=== PATIENT | female | born 1950 | race Caucasian/White ===

== ENCOUNTER → 2017-01-02 | Outpatient (CLI) | payer MEDICARE, OTHER ==
[~2017-01-02] MED LIST: CANA300T OR; CITA20TA3 PO; DICL1.3D21 TOP; DICL1GEL26 TOP; ERYT2GEL TOP; LEVO125C PO; PANT40TA2 PO; PREG100C PO; REPA1TAB5 OR; ROSU5TAB5 PO; SITA100T7 PO; TIZA4CAP7 PO; TOLT4CAP12 PO; VALA1TAB29 PO; [UNRECOGNIZED DRUG - CODE] OR
[2017-01-02 09:30] LABS: Urine Bilirubin Negative (Negative); Urine Color Yellow (Yellow); Urine Ketone Negative (Negative); Urine Mucus FEW (None Seen); Urine Nitrite Negative (Negative); Urine RBC 13 /hpf (0 - 4); Urine Squamous Epithelial Cell FEW /hpf (<5); Urine Urobilinogen Normal (Negative); Urine pH 5.5 (5.0-8.0)
[2017-01-02 09:31] LABS: Urine Blood 1+ /uL (Negative); Urine Glucose 2+ mg/dL (Normal)
[2017-01-02 09:41] LABS: Cholesterol 136 mg/dL (<200); HDL Cholesterol 46 mg/dL (40-59); LDL Cholesterol 76 mg/dL (<100); Triglycerides 98 mg/dL (<150)
== END | disposition home or self-care (01) ==
LOC: LAB 07:58
PROVIDERS: ATTEND Internal Medicine
DX: E11.9 Type 2 diabetes mellitus without complications (principal); I10 Essential (primary) hypertension
CPT/HCPCS: 36415; 80061; 81001; 82043; 82607; 83036; 84439; 84443; 85379

== ENCOUNTER → 2017-02-13 | Outpatient (CLI) | payer MEDICARE, OTHER ==
[2017-02-13 14:22] LABS: Basophils # (auto) 0 uL; Basophils % (auto) 0.1 % (0.0-2.0); Eosinophils # (auto) 0.2 uL; Eosinophils % (auto) 1.8 % (0.0-7.0); Hematocrit 45.2 % (36.0-46.0); Hemoglobin 14.9 g/dL (12.2-16.2); Lymphocytes # (auto) 1.5 uL; Lymphocytes % (auto) 16.4 % (10.0-50.0); Mean Corpuscular Hemoglobin 31.8 pg (28.0-32.0); Mean Corpuscular Volume 96.1 fL (80.0-100.0); Mean Platelet Volume 7.2 fL (7.4-10.4); Monocytes # (auto) 0.6 uL; Monocytes % (auto) 6.5 % (0.0-12.0); Neutrophils # (auto) 6.6 uL; Neutrophils % (auto) 75.2 % (37.0-80.0); Platelet Count (auto) 291 10^3/uL (140-450); Red Cell Distribution Width 15.1 % (11.6-16.0); White Blood Cell 8.8 10^3/uL (4.4-10.8)
[2017-02-13 14:35] LABS: BUN/Creatinine Ratio 12.7; Calcium 8.8 mg/dL (8.5-10.1); Potassium 4.1 mmol/L (3.5-5.1)
[2017-02-13 14:43] LABS: B-Type Natriuretic Peptide 75.72 pg/mL (0-100)
[2017-02-13 14:50] LABS: Temperature: 22.4 C (20.0-25.0)
== END | disposition home or self-care (01) ==
LOC: LAB 14:05
PROVIDERS: ATTEND Internal Medicine
DX: R05 Cough (principal); R06.9 Unspecified abnormalities of breathing; R06.01 Orthopnea
CPT/HCPCS: 36415; 80048; 83880; 85025

== ENCOUNTER 2017-02-21 17:02 | Emergency (ER) | payer MEDICARE, OTHER ==
[~2017-02-21] VITALS: Ht 172.7 cm; Wt 128.4 kg
[2017-02-21] MEDS ORDERED: cloNIDine HCL 0.1 MG TAB PO ONE (18:00)
[2017-02-21 18:44] LABS: Basophils # (auto) 0.1 uL; Basophils % (auto) 0.4 % (0.0-2.0); Eosinophils # (auto) 0.1 uL; Eosinophils % (auto) 0.6 % (0.0-7.0); Hematocrit 45.1 % (36.0-46.0); Hemoglobin 14.7 g/dL (12.2-16.2); Lymphocytes # (auto) 1.5 uL; Lymphocytes % (auto) 11.4 % (10.0-50.0); Mean Corpuscular Hemoglobin 31.6 pg (28.0-32.0); Mean Corpuscular Hgb Conc. 32.7 g/dL (32.0-36.0); Mean Corpuscular Volume 96.7 fL (80.0-100.0); Mean Platelet Volume 7.6 fL (7.4-10.4); Monocytes % (auto) 7.4 % (0.0-12.0); Neutrophils # (auto) 10.2 uL; Neutrophils % (auto) 80.2 % (37.0-80.0); Platelet Count (auto) 307 10^3/uL (140-450); Red Cell Distribution Width 14.7 % (11.6-16.0); White Blood Cell 12.8 10^3/uL (4.4-10.8)
[2017-02-21 18:54] LABS: Albumin 3.2 g/dL (3.4-5.0); Anion Gap 9 (5-15); Aspartate Aminotransferase 17 U/L (15-37); BUN/Creatinine Ratio 9.4; Blood Urea Nitrogen 6 mg/dL (7-18); Calcium 8.3 mg/dL (8.5-10.1); Carbon Dioxide 27 mmol/L (21-32); Chloride 101 mmol/L (98-107); GFR African American 119 mL/min; GFR Non-African American 99 mL/min; Glucose 104 mg/dL (74-106); Potassium 3.3 mmol/L (3.5-5.1); Sodium 137 mmol/L (136-145)
[2017-02-21 19:06] LABS: Alkaline Phosphatase 65 U/L (45-117); Bilirubin, Total 0.7 mg/dL (0.2-1.0); Total Protein 7.4 g/dL (6.4-8.2)
[2017-02-21 21:43] LABS: Urine Bilirubin Negative (Negative); Urine Blood Negative /uL (Negative); Urine Color Yellow (Yellow); Urine Glucose Normal (Normal); Urine Ketone Negative (Negative); Urine Nitrite Negative (Negative); Urine RBC 1 /hpf (0 - 4); Urine Squamous Epithelial Cell FEW /hpf (<5); Urine Urobilinogen Normal (Negative); Urine pH 7.5 (5.0-8.0)
[2017-02-21] MEDS ORDERED: ONDANSETRON HCL 4 MG/2 ML VIAL IV ONE (22:15)
[2017-02-21] MEDS ORDERED: MORPHINE SULFATE 4 MG/ML SYRG IV ONE (22:15)
[2017-02-21] MEDS ORDERED: SODIUM CHLORIDE 0.9% 1,000 ML IV ONE (22:15)
[2017-02-21] MEDS ORDERED: METOCLOPRAMIDE HCL 5MG/ml INJ 2ml VIAL IV ONE (22:15)
[2017-02-21] MEDS ORDERED: LORazepam 2MG/ML-1ML VIAL ONE (22:39)
[2017-02-21] MEDS ORDERED: IOHEXOL 300 MG/ML 100ML BOTTLE IJ ONE (23:00)
[2017-02-21] MEDS ORDERED: LORazepam 2MG/ML-1ML VIAL IV ONE (23:00)
[2017-02-22] MEDS ORDERED: LIDOCAINE 1% HCL (LOCAL ANESTH.) INJ 20ML MDV ONE (00:47)
[2017-02-22 01:30] VITALS: BP 128/67
== END 2017-02-22 01:49 | disposition home or self-care (01) ==
LOC: ER 17:04
DX: K31.84 Gastroparesis (principal); E11.9 Type 2 diabetes mellitus without complications; M79.7 Fibromyalgia; Z90.710 Acquired absence of both cervix and uterus; Z88.1 Allergy status to other antibiotic agents; Z88.8 Allergy status to other drugs, medicaments and biological substances
CPT/HCPCS: 36415; 74177; 80053; 81001; 84484; 85025; 93005; 96361; 96374; 96375; 99285; J2001; J2060; J2270; J2765; J7030; Q9967; J2405

== ENCOUNTER → 2017-07-09 | Outpatient (CLI) | payer MEDICARE, OTHER ==
[2017-07-09 11:15] LABS: Basophils # (auto) 0.1 uL; Basophils % (auto) 0.7 % (0.0-2.0); CONDITION Y; Eosinophils # (auto) 0.1 uL; Eosinophils % (auto) 1.5 % (0.0-7.0); Hematocrit 43.1 % (36.0-46.0); Hemoglobin 14.4 g/dL (12.2-16.2); Lymphocytes # (auto) 1.5 uL; Mean Corpuscular Hemoglobin 31.3 pg (28.0-32.0); Mean Corpuscular Hgb Conc. 33.3 g/dL (32.0-36.0); Mean Corpuscular Volume 93.8 fL (80.0-100.0); Mean Platelet Volume 7.4 fL (7.4-10.4); Monocytes # (auto) 0.7 uL; Monocytes % (auto) 8.1 % (0.0-12.0); Neutrophils # (auto) 6.6 uL; Neutrophils % (auto) 72.7 % (37.0-80.0); Platelet Count (auto) 312 10^3/uL (140-450); Red Cell Distribution Width 14.9 % (11.6-16.0)
[2017-07-09 11:47] LABS: Albumin 3.4 g/dL (3.4-5.0); BUN/Creatinine Ratio 21.9; Bilirubin, Total 0.5 mg/dL (0.2-1.0); Potassium 3.8 mmol/L (3.5-5.1); Total Protein 7.3 g/dL (6.4-8.2)
== END | disposition home or self-care (01) ==
LOC: LAB 10:38
DX: E11.9 Type 2 diabetes mellitus without complications (principal); M06.9 Rheumatoid arthritis, unspecified; G64 Other disorders of peripheral nervous system; I10 Essential (primary) hypertension
CPT/HCPCS: 36415; 80053; 85025; 85652; 86141

== ENCOUNTER → 2018-02-06 | Outpatient (CLI) | payer MEDICARE, OTHER ==
[2018-02-06 10:15] LABS: Basophils # (auto) 0 uL; Basophils % (auto) 0.6 % (0.0-2.0); Eosinophils # (auto) 0.2 uL; Eosinophils % (auto) 1.9 % (0.0-7.0); Hematocrit 44.6 % (36.0-46.0); Hemoglobin 14.8 g/dL (12.2-16.2); Lymphocytes # (auto) 1.5 uL; Lymphocytes % (auto) 17.6 % (10.0-50.0); Mean Corpuscular Volume 93.8 fL (80.0-100.0); Monocytes # (auto) 0.7 uL; Monocytes % (auto) 8.6 % (0.0-12.0); Neutrophils # (auto) 5.9 uL; Neutrophils % (auto) 71.3 % (37.0-80.0); Platelet Count (auto) 210 10^3/uL (140-450); Red Blood Cells 4.76 10^6/uL (4.0-5.20); Red Cell Distribution Width 14.6 % (11.8-14.3); White Blood Cell 8.2 10^3/uL (4.4-10.8)
[2018-02-06 10:27] LABS: Urine Bacteria NONE SEEN /hpf (None Seen); Urine Blood Negative /uL (Negative); Urine Specific Gravity 1.026 (1.001-1.035); Urine WBC 10 /hpf (0 - 5)
[2018-02-06 11:08] LABS: Free T4 (Free Thyroxine) 1.51 ng/dL (0.89-1.76)
[2018-02-06 11:11] LABS: Albumin 3.3 g/dL (3.4-5.0); BUN/Creatinine Ratio 13.8; Bilirubin, Total 0.6 mg/dL (0.2-1.0); Calcium 8.6 mg/dL (8.5-10.1); Potassium 4.1 mmol/L (3.5-5.1); Total Protein 7.3 g/dL (6.4-8.2); Uric Acid 4.7 mg/dL (2.6-6.0)
== END | disposition home or self-care (01) ==
LOC: LAB 09:52
PROVIDERS: ATTEND Internal Medicine
DX: E11.9 Type 2 diabetes mellitus without complications (principal); I10 Essential (primary) hypertension; N20.0 Calculus of kidney; M06.9 Rheumatoid arthritis, unspecified; Z79.899 Other long term (current) drug therapy
CPT/HCPCS: 36415; 80053; 80061; 81001; 82043; 82607; 83036; 83970; 84439; 84443; 84550; 85025; 85652

== ENCOUNTER → 2020-08-10 | Outpatient (CLI) | payer MEDICARE, OTHER ==
[~2020-08-10] MED LIST changes: -DICL1.3D21 TOP; -LEVO125C PO; +LEVO125C2 PO; +[UNRECOGNIZED DRUG - CODE] TOP
[2020-08-10 08:39] LABS: Basophils # (auto) 0 10 ^3/uL (0-0.2); Basophils % (auto) 0.2 % (0.0-2.0); Eosinophils # (auto) 0.1 10 ^3/uL (0-0.8); Eosinophils % (auto) 1.3 % (0.0-7.0); Hematocrit 44.4 % (36.0-46.0); Hemoglobin 15.1 g/dL (12.2-16.2); Lymphocytes # (auto) 1.6 10 ^3/uL (0.4-5.4); Lymphocytes % (auto) 15.6 % (10.0-50.0); Mean Corpuscular Hemoglobin 33.6 pg (28.0-32.0); Mean Corpuscular Volume 98.7 fL (80.0-100.0); Monocytes # (auto) 0.9 10 ^3/uL (0-1.3); Monocytes % (auto) 8.7 % (0.0-12.0); Neutrophils # (auto) 7.6 10 ^3/uL (1.6-8.6); Neutrophils % (auto) 74.2 % (37.0-80.0); Platelet Count (auto) 217 10^3/uL (140-450); Red Blood Cells 4.49 10^6/uL (4.0-5.20); Red Cell Distribution Width 13.9 % (11.8-14.3); White Blood Cell 10.2 10^3/uL (4.4-10.8)
[2020-08-10 08:45] LABS: Urine Bacteria NONE SEEN /hpf (None Seen); Urine Blood TRACE /uL (Negative); Urine Specific Gravity 1.026 (1.001-1.035); Urine WBC 4 /hpf (0 - 5)
[2020-08-10 09:07] LABS: Albumin 3.3 g/dL (3.4-5.0); Calcium 9.2 mg/dL (8.5-10.1); Potassium 4.3 mmol/L (3.5-5.1)
[2020-08-10 09:11] LABS: BUN/Creatinine Ratio 23.7; Bilirubin, Total 0.4 mg/dL (0.2-1.0); Total Protein 7.2 g/dL (6.4-8.2)
== END | disposition home or self-care (01) ==
LOC: LAB 08:12
PROVIDERS: ATTEND Internal Medicine
DX: E11.22 Type 2 diabetes mellitus with diabetic chronic kidney disease (principal); N18.9 Chronic kidney disease, unspecified
CPT/HCPCS: 36415; 80053; 80061; 81001; 82043; 83036; 85025

== ENCOUNTER → 2021-08-11 | Outpatient (CLI) | payer MEDICARE, OTHER ==
[~2021-08-11] MED LIST changes: +DICL1.3P TOP; +TOLT4CAP PO; -TOLT4CAP12 PO; -[UNRECOGNIZED DRUG - CODE] TOP
== END | disposition home or self-care (01) ==
LOC: XYW 13:59
PROVIDERS: ATTEND Student in an Organized Health Care Education/Training Program
DX: I08.0 Rheumatic disorders of both mitral and aortic valves (principal); R60.0 Localized edema
CPT/HCPCS: 93306

== ENCOUNTER → 2021-11-14 | Outpatient (CLI) | payer MEDICARE, OTHER ==
[2021-11-14 09:03] LABS: Basophils # (auto) 0.1 10 ^3/uL (0-0.2); Basophils % (auto) 1.2 % (0.0-2.0); Eosinophils # (auto) 0.1 10 ^3/uL (0-0.8); Eosinophils % (auto) 1.6 % (0.0-7.0); Hemoglobin 14.4 g/dL (12.2-16.2); Lymphocytes # (auto) 1.9 10 ^3/uL (0.4-5.4); Lymphocytes % (auto) 26.2 % (10.0-50.0); Mean Corpuscular Hemoglobin 32.5 pg (28.0-32.0); Mean Corpuscular Hgb Conc. 33.5 g/dL (32.0-36.0); Monocytes # (auto) 0.5 10 ^3/uL (0-1.3); Monocytes % (auto) 6.8 % (0.0-12.0); Neutrophils # (auto) 4.6 10 ^3/uL (1.6-8.6); Neutrophils % (auto) 64.2 % (37.0-80.0); Nucleated Red Blood Cells % 0.1 %; Red Blood Cells 4.43 10^6/uL (4.0-5.20); Red Cell Distribution Width 14.6 % (11.8-14.3); White Blood Cell 7.1 10^3/uL (4.4-10.8)
[2021-11-14 09:22] LABS: Urine Bacteria NONE SEEN /hpf (None Seen); Urine Blood Negative /uL (Negative); Urine Mucus FEW (None Seen); Urine Specific Gravity 1.018 (1.001-1.035); Urine WBC 1 /hpf (0 - 5)
[2021-11-14 09:28] LABS: INR 1.01 (0.9-1.15); Partial Thromboplastin Time 23.1 sec (23.6-33.0)
[2021-11-14 09:56] LABS: Albumin 3.1 g/dL (3.4-5.0); Calcium 8.5 mg/dL (8.5-10.1); Potassium 4.4 mmol/L (3.5-5.1)
[2021-11-14 09:59] LABS: BUN/Creatinine Ratio 34.1; Bilirubin, Total 0.3 mg/dL (0.2-1.0); Total Protein 6.4 g/dL (6.4-8.2)
== END | disposition home or self-care (01) ==
LOC: LAB 08:31
PROVIDERS: ATTEND Student in an Organized Health Care Education/Training Program
DX: Z01.818 Encounter for other preprocedural examination (principal); I10 Essential (primary) hypertension; G56.02 Carpal tunnel syndrome, left upper limb; Z79.01 Long term (current) use of anticoagulants
CPT/HCPCS: 36415; 80053; 81001; 85025; 85610; 85730

== ENCOUNTER 2022-03-29 17:00 | Emergency (ER) | payer MEDICARE, OTHER ==
[~2022-03-29] VITALS: Ht 170.2 cm; Wt 124.7 kg
[2022-03-30] MEDS ORDERED: OXYCODONE W/ ACETAMINOPHEN 5/325MG TABLET PO ONE (02:45)
[2022-03-30] MEDS ORDERED: PERCOT PO (03:08)
[2022-03-30] MEDS ORDERED: LIDO5PAD8 EX (03:08)
[2022-03-30 03:46] VITALS: BP 153/77
== END 2022-03-30 03:50 | disposition home or self-care (01) ==
LOC: ER 17:00
DX: R07.81 Pleurodynia (principal); M54.9 Dorsalgia, unspecified; I10 Essential (primary) hypertension; E11.9 Type 2 diabetes mellitus without complications; E78.5 Hyperlipidemia, unspecified; Z90.710 Acquired absence of both cervix and uterus; Z90.89 Acquired absence of other organs; Z79.2 Long term (current) use of antibiotics; Z79.899 Other long term (current) drug therapy; Z88.2 Allergy status to sulfonamides; Z88.1 Allergy status to other antibiotic agents
CPT/HCPCS: 72100; 72131

== ENCOUNTER → 2022-08-28 | Outpatient (CLI) | payer MEDICARE, OTHER ==
[~2022-08-28] MED LIST changes: +LIDO5PAD8 EX; +PERCOT PO
[2022-08-28 08:32] LABS: Urine Bacteria NONE SEEN /hpf (None Seen); Urine Blood Negative /uL (Negative); Urine Mucus FEW (None Seen); Urine WBC 2 /hpf (0 - 5)
[2022-08-28 08:41] LABS: Basophils # (auto) 0 10 ^3/uL (0-0.2); Basophils % (auto) 0.5 % (0.0-2.0); Eosinophils # (auto) 0.2 10 ^3/uL (0-0.8); Eosinophils % (auto) 2.6 % (0.0-7.0); Hematocrit 39.3 % (36.0-46.0); Hemoglobin 12.9 g/dL (12.2-16.2); Lymphocytes # (auto) 1.4 10 ^3/uL (0.4-5.4); Lymphocytes % (auto) 19.2 % (10.0-50.0); Mean Corpuscular Hgb Conc. 32.8 g/dL (32.0-36.0); Mean Corpuscular Volume 94.5 fL (80.0-100.0); Monocytes # (auto) 0.8 10 ^3/uL (0-1.3); Monocytes % (auto) 10.4 % (0.0-12.0); Neutrophils # (auto) 4.9 10 ^3/uL (1.6-8.6); Neutrophils % (auto) 67.3 % (37.0-80.0); Red Blood Cells 4.16 10^6/uL (4.0-5.20); Red Cell Distribution Width 16.1 % (11.8-14.3); White Blood Cell 7.3 10^3/uL (4.4-10.8)
[2022-08-28 08:58] LABS: Albumin 2.5 g/dL (3.4-5.0); Calcium 8.8 mg/dL (8.5-10.1); Potassium 4.3 mmol/L (3.5-5.1)
[2022-08-28 09:03] LABS: BUN/Creatinine Ratio 22.5; Bilirubin, Total 0.3 mg/dL (0.2-1.0); Total Protein 6.6 g/dL (6.4-8.2)
== END | disposition home or self-care (01) ==
LOC: LAB 07:52
PROVIDERS: ATTEND Student in an Organized Health Care Education/Training Program
DX: I10 Essential (primary) hypertension (principal); E11.9 Type 2 diabetes mellitus without complications; E03.8 Other specified hypothyroidism
CPT/HCPCS: 36415; 80053; 80061; 81001; 82043; 83036; 84439; 84443; 85025